=== PATIENT | female | born 1990 ===

== ENCOUNTER 2016-11-24 14:15 | Emergency (ER) | payer MEDICAID ==
[2016-11-24] MEDS ORDERED: Sodium Chloride 0.9% 1,000 ML IV STA (14:35)
[2016-11-24 14:36] VITALS: BP 106/71; PULSE 67; RESP 18; TEMP 98.4; O2SAT 98; BMI 27.3
[2016-11-24 15:00] LABS: ADD MANUAL DIFF? NO
[2016-11-24 15:09] LABS: BASO # 0.03 K/mm3 (0.0-2.0); BASO % 0.4 % (0.0-3.0); EOS # 0.3 (0.0-0.7); EOS % 3.9 % (1.5-5.0); GRAN # 4.58 (1.4-6.5); GRAN % 61.4 % (50.0-68.0); HEMATOCRIT 37.4 % (36.0-48.0); LYMPH # 2.2 (1.2-3.4); LYMPH % 29.9 % (22.0-35.0); MEAN CELL VOLUME 89.7 fL (80.0-105.0); MEAN CORPUSCULAR HEMOGLOBIN 30.2 pg (25.0-35.0); MEAN CORPUSCULAR HGB CONC 33.7 g/dl (31.0-37.0); MEAN PLATELET VOLUME 9.1 fl (7.0-11.0); MONO # 0.3 (0.1-0.6); MONO % 4.4 % (1.0-6.0); PLATELET COUNT 381 10^3/uL (120.0-450.0); WHITE BLOOD COUNT 7.5 10^3/ul (4.5-11.0)
[2016-11-24 15:16] LABS: INR 0.95 (0.93-1.08); PARTIAL THROMBOPLASTIN TIME 30.6 Seconds (23.7-30.8)
[2016-11-24 15:18] LABS: ALB/GLOB RATIO 1.3 (1.1-1.8); ALKALINE PHOSPHATASE 66 U/L (38-133); ALT/SGPT 44 U/L (7-56); AST/SGOT 33 U/L (15-39); BILIRUBIN,TOTAL 0.6 mg/dL (0.2-1.3); BLOOD UREA NITROGEN 12 mg/dL (7-21); CALCIUM 9.5 mg/dL (8.4-10.5); CARBON DIOXIDE 28 mmol/L (21-33); CHLORIDE 103 mmol/L (98-107); GFR AFRICAN-AMERICAN > 60; GLUCOSE,RANDOM 99 mg/dL (70-110); LIPASE 26 U/L (23-300); SODIUM 140 mmol/L (132-148); TOTAL PROTEIN 7.7 g/dL (5.8-8.3)
--- NOTE | 2016-11-24 16:40 | US ---
PROCEDURE: HISTORY: on 11/07 with bleeding - r/o retained products COMPARISON: TECHNIQUE: FINDINGS: The uterus measures 10.6 x 7.6 x 7.6 centimeters. The endometrium measures roughly 1.2 centimeters. There is heterogeneity of the endometrium with mild vascularity noted; retained products of conception are suspected. The right ovary measures 2.4 x 1.8 centimeters. Left thyroid measures 1.9 x 1.0 centimeters. There are bilateral ovarian follicles. IMPRESSION: Thickened heterogeneous endometrium with vascularity suspicious for retained products of conception.
--- NOTE | 2016-11-24 17:04 | ED PDOC ---
Arrival/HPI - General Chief Complaint: Female Genitourinary Time Seen by Provider: 11/24/16 14:34 Historian: Patient - History of Present Illness Narrative History of Present Illness (Text): 11/24/16 17:16 A 26 year old female, , status post (november 07), complaining of vaginal bleeding since delivery. Patient states using 3 or 4 pads daily. Patient notes she passed a large clot today and continuous bleeding. Patient reports tolerating all po and is currently bottle feeding baby. Patient denies fever, nausea, vomiting or any other complaints at this time. Time/Duration: < month Symptom Onset: Sudden Symptom Course: Unchanged Activities at Onset: Rest Modifying Factors (Text): none Context: Home Associated Symptoms (Text): none Past Medical History - Provider Review Nursing Documentation Reviewed: Yes - Past History Past History: Non-Contributing - Infectious Disease Hx of Infectious Diseases: None - Tetanus Immunization Tetanus Immunization: Up to Date - Past Medical History Past Medical History: Non-Contributing - Neurological Hx Headaches: Yes (due to anxiety and stress) - Genitourinary/Gynecological Hx Genitourinary Disorders: Yes Other/Comment: ovarian cyst - Psychiatric Hx Anxiety: Yes Hx Substance Use: No - Past Surgical History Past Surgical History: No Previous - Anesthesia Hx Anesthesia: No - Suicidal Assessment Feels Threatened In Home Enviroment: No Family/Social History - Physician Review Nursing Documentation Reviewed: Yes Family/Social History: No Known Family HX Smoking Status: Never Smoked Hx Alcohol Use: Yes Frequency of alcohol use: Socially Hx Substance Use: No Hx Substance Use Treatment: No Allergies/Home Meds Allergies/Adverse Reactions: Allergies amoxicillin Allergy (Verified 11/24/16 14:27) RASH Home Medications: Home Meds Medication Instructions Recorded Confirmed No Known Home Med 03/15/16 11/24/16 Review of Systems - Physician Review All systems were reviewed & negative as marked: Yes - Review of Systems Constitutional: absent: Fevers Gastrointestinal: absent: Nausea, Vomiting Genitourinary Female: Vaginal Bleeding. absent: Dysuria Physical Exam Vital Signs Reviewed: Yes Vital Signs Temp Pulse Resp BP Pulse Ox 11/24/16 14:24 98.4 F 67 18 106/71 98 Temperature: Afebrile Blood Pressure: Normal Pulse: Regular Respiratory Rate: Normal Appearance: Positive for: Well-Appearing, Non-Toxic, Comfortable Pain Distress: None Mental Status: Positive for: Alert and Oriented X 3 - Systems Exam Head: Present: Atraumatic, Normocephalic Pupils: Present: PERRL Extroacular Muscles: Present: EOMI Conjunctiva: Present: Normal Mouth: Present: Moist Mucous Membranes Neck: Present: Normal Range of Motion Respiratory/Chest: Present: Clear to Auscultation, Good Air Exchange. No: Respiratory Distress, Accessory Muscle Use Cardiovascular: Present: Regular Rate and Rhythm, Normal S1, S2. No: Murmurs Abdomen: Present: Normal Bowel Sounds. No: Tenderness, Distention, Peritoneal Signs Back: Present: Normal Inspection Upper Extremity: Present: Normal Inspection. No: Cyanosis, Edema Lower Extremity: Present: Normal Inspection. No: Edema Neurological: Present: GCS=15, CN II-XII Intact, Speech Normal Skin: Present: Warm, Dry, Normal Color. No: Rashes Psychiatric: Present: Alert, Oriented x 3, Normal Insight, Normal Concentration Medical Decision Making ED Course and Treatment: 11/24/16 17:01 Impression: A 26 year old female, , status post complaining of vaginal bleeding. Differential Diagnosis include but are not limited to: Plan: -- US transvaginal -- labs -- IV fluids -- Reassess and disposition Prior Visits: Notes and results from previous visits were reviewed. Patient was last reported to emergency department on 11/06/16 for evaluation of increased pain and vaginal bleeding after delivery. Progress Notes: US transvaginal: Creator : Vipin Victor MD IMPRESSION: Thickened heterogeneous endometrium with vascularity suspicious for retained products of conception. 11/24/16 17:[address] Felix, reviewed case, recommended 1 dose of Misoprostol [address] Felix will see patient next week. Patient understands and is aware of plan. - Lab Interpretations Lab Results: 11/24/16 14:50 11/24/16 14:50 Lab Results 11/24/16 14:50: Sodium 140, Potassium 4.0, Chloride 103, Carbon Dioxide 28, Anion Gap 13, BUN 12, Creatinine 0.8, Est GFR ( Amer) > 60, Est GFR (Non- Af Amer) > 60, Random Glucose 99, Calcium 9.5, Total Bilirubin 0.6, AST 33, ALT 44, Alkaline Phosphatase 66, Total Protein 7.7, Albumin 4.3, Globulin 3.4, Albumin/Globulin Ratio 1.3, Lipase 26 11/24/16 14:50: PT 10.3, INR 0.95, APTT 30.6 11/24/16 14:50: WBC 7.5 D, RBC 4.17, Hgb 12.6, Hct 37.4, MCV 89.7, MCH 30.2, MCHC 33.7, RDW 13.0, Plt Count 381, MPV 9.1, Gran % 61.4, Lymph % (Auto) 29.9, Wharton % (Auto) 4.4, Eos % (Auto) 3.9, Baso % (Auto) 0.4, Gran # 4.58, Lymph # 2.2 , Wharton # 0.3, Eos # 0.3, Baso # 0.03 I have reviewed the lab results: Yes - RAD Interpretation Radiology Orders: 11/24/16 15:11 TRANSVAGINAL [US] Stat - Medication Orders Current Medication Orders: Discontinued Medications Sodium Chloride (Sodium Chloride 0.9%) 1,000 mls @ 1,000 mls/hr IV .Q1H STA Stop: 11/24/16 15:34 Last Admin: 11/24/16 14:58 Dose: 1,000 mls/hr Misoprostol (Cytotec) 600 mcg PO STAT STA Stop: 11/24/16 17:27 Last Admin: 11/24/16 17:48 Dose: 600 mcg - Scribe Statement Marisol Gonzalez All medical record entries made by the Yaniraiberin were at my direction and personally dictated by me. I have reviewed the chart and agree that the record accurately reflects my personal performance of the history, physical exam, medical decision making, and the department course for this patient. I have also personally directed, reviewed, and agree with the discharge instructions and disposition. Disposition/Present on Arrival - Present on Arrival Any Indicators Present on Arrival: No History of DVT/PE: No History of Uncontrolled Diabetes: No Urinary Catheter: No History of Decub. Ulcer: No History Surgical Site Infection Following: None - Disposition Have Diagnosis and Disposition been Completed?: Yes Diagnosis: hemorrhage of vagina Disposition: HOME/ ROUTINE Disposition Time: 17:30 Condition: GOOD Discharge Instructions (ExitCare): Bleeding (ED) Additional Instructions: Thank you for letting us take care of you today. Your provider was Dr. Leung. You were treated for post- bleeding. The emergency medical care you received today was directed at your acute symptoms. If you were prescribed any medication, please fill it and take as directed. It may take several days for your symptoms to resolve. Return to the Emergency Department if your symptoms worsen, do not improve, or if you have any other problems. Please contact your doctor or call one of the physicians/clinics you have been referred to that are listed on the Patient Visit Information form that is included in your discharge packet. Bring any paperwork you were given at discharge with you along with any medications you are taking to your follow up visit. Our treatment cannot replace ongoing medical care by a primary care provider (PCP) outside of the emergency department. Thank you [facility] of your care today. Follow up with Dr. Felix next week. Return to the emergency room if you have any concerns. Referrals: Jonnathan Felix MD [Family Provider] - Follow up with primary
== END 2016-11-24 17:51 | disposition home or self-care (01) ==
LOC: ED 14:15
DX: O72.1 Other immediate postpartum hemorrhage (principal)
CPT/HCPCS: 76830; 80053; 83690; 85025; 85610; 85730; 99285; J7040

== ENCOUNTER 2017-03-05 21:09 | Emergency (ER) | payer SELFPAY ==
[2017-03-05 21:16] VITALS: BMI 26.6
--- NOTE | 2017-03-05 21:25 | ED PDOC ---
Arrival/HPI - General Chief Complaint: Bite Time Seen by Provider: 03/05/17 21:15 Historian: Patient - History of Present Illness Narrative History of Present Illness (Text): 03/05/17 21:33 Lyly Grace is 27 year old female who presents to the emergency department for evaluation of bug bite to left leg 4 days ago. Reports of some itchiness to the area initially, and developed some redness to surrounding area. Denies any pain to the area. Denies fever, chills, nausea, vomiting, or any other complaints at this time. Time/Duration: Other (4 days ago ) Severity Level: Mild Activities at Onset: Light Past Medical History - Provider Review Nursing Documentation Reviewed: Yes - Past History Past History: Non-Contributing - Infectious Disease Hx of Infectious Diseases: None - Tetanus Immunization Tetanus Immunization: Up to Date - Past Medical History Past Medical History: Non-Contributing - Neurological Hx Headaches: Yes (due to anxiety and stress) - Genitourinary/Gynecological Hx Genitourinary Disorders: Yes Other/Comment: ovarian cyst - Psychiatric Hx Psychophysiologic Disorder: Yes Hx Anxiety: Yes Hx Substance Use: No - Past Surgical History Past Surgical History: No Previous - Anesthesia Hx Anesthesia: No - Suicidal Assessment Feels Threatened In Home Enviroment: No Family/Social History - Physician Review Nursing Documentation Reviewed: Yes Family/Social History: No Known Family HX Smoking Status: Never Smoked Hx Alcohol Use: Yes Hx Substance Use: No Hx Substance Use Treatment: No Allergies/Home Meds Allergies/Adverse Reactions: Allergies amoxicillin Allergy (Verified 03/05/17 21:16) RASH Review of Systems - Review of Systems Constitutional: absent: Fevers Gastrointestinal: absent: Nausea, Vomiting Musculoskeletal: Other (bug bite to left leg ) Physical Exam Vital Signs Reviewed: Yes Vital Signs Temp Pulse Resp BP Pulse Ox 03/05/17 21:16 98.1 F 76 16 128/52 L 98 Temperature: Afebrile Blood Pressure: Normal Pulse: Regular Respiratory Rate: Normal Appearance: Positive for: Well-Appearing, Non-Toxic, Comfortable Pain Distress: None Mental Status: Positive for: Alert and Oriented X 3 - Systems Exam Head: Present: Atraumatic, Normocephalic Lower Extremity: Present: Normal Inspection, NORMAL PULSES, Other (4cm X5cm rectangular area of redness to lateral aspect of left calf with minimal induration. No tenderness. No fluctuance. ). No: Edema, CALF TENDERNESS, Tenderness Neurological: Present: GCS=15, CN II-XII Intact, Speech Normal, Motor Func Grossly Intact, Normal Sensory Function Psychiatric: Present: Alert, Oriented x 3, Normal Insight, Normal Concentration Medical Decision Making ED Course and Treatment: 03/05/17 21:46 Impression: A 27 year old female who presents to the emergency department for evaluation big bite to lateral aspect of left calf. Progress Notes: 03/05/17 21:49 Patient with cellulitis with no evidence of abscess. She is pcn allergic - will d/c on clindamycin. Patient is stable for discharge. Will discharge patient on antibiotics. Advised to present to emergency department for new/ worsening symptoms and follow up with PMD within few days. - Scribe Statement The provider has reviewed the documentation as recorded by the Oleg Rizo Provider Attestation: Provider Scribe Attestation: All medical record entries made by the Scribe were at my direction and personally dictated by me. I have reviewed the chart and agree that the record accurately reflects my personal performance of the history, physical exam, medical decision making, and the department course for this patient. I have also personally directed, reviewed, and agree with the discharge instructions and disposition. Disposition/Present on Arrival - Present on Arrival Any Indicators Present on Arrival: No History of DVT/PE: No History of Uncontrolled Diabetes: No Urinary Catheter: No History of Decub. Ulcer: No History Surgical Site Infection Following: None - Disposition Have Diagnosis and Disposition been Completed?: Yes Diagnosis: Left leg cellulitis Disposition: HOME/ ROUTINE Disposition Time: 21:20 Patient Plan: Discharge Condition: GOOD Discharge Instructions (ExitCare): Cellulitis (ED) Additional Instructions: Take the antibiotic as prescribed. Follow up with the medical clinic. Return to the emergency department if any new concerning symptoms. Prescriptions: Clindamycin [Cleocin] 1 cap PO QID #40 cap Referrals: [facility] [place] [Outside] - Follow up with primary Forms: [employer] (Tongan)
[2017-03-05 21:56] VITALS: BP 128/52; PULSE 76; RESP 16; TEMP 98.1; O2SAT 98
== END 2017-03-05 21:30 | disposition home or self-care (01) ==
LOC: ED 21:09
DX: L03.116 Cellulitis of left lower limb (principal)